=== PATIENT | male | born 1960 | race Caucasian/White ===

== ENCOUNTER → 2018-05-13 09:12 | Outpatient (CLI) | payer BC | END | disposition home or self-care (01) | LOC: D.HCCARDIO 09:12 | PROVIDERS: ATTEND Internal Medicine Cardiovascular Disease | DX: R10.9 Unspecified abdominal pain (principal); Z82.49 Family history of ischemic heart disease and other diseases of the circulatory system ==

== ENCOUNTER 2018-05-27 11:04 | Outpatient (CLI) | payer BC ==
[~2018-05-27] VITALS: Ht 180.3 cm; Wt 86.4 kg
--- NOTE | ~2018-05-27 | HEMODYNAMI ---
PATIENT:AIDE FIERRO MEDICAL RECORD: [id number] : 62 LOCATION:[facility] ADMISSION DATE: 05/27/18 Generatedon:05/27/201813:19 Patient name: AIDE FIERRO Patient #: [id number] SSN: : 1960 Date of study: 05/27/2018 Page: Of Hemodynamic Procedure Report Patient Data Patient Demographics Procedure consent was obtained First Name: IADE Gender: Male Last Name: SRI : 1960 Middle Initial: M Age: 57 year(s) Patient #: [id number] Race: Unknown Additional ID: [id number] Contact details [address]: [address] [place] [address] [place] State: [place] City: [place] Zip code: [address] Admission Admission Data Admission Date: 05/27/2018 Admission Time: 11:04 Procedure Procedure Types Cath Procedure Diagnostic Procedure LHC LHC w/Coronaries Sedation Charges Moderate Sedation up to 15 minutes Procedure Description Procedure Date Procedure Date: 05/27/2018 Procedure Start Time: 13:04 Procedure End Time: 13:19 Procedure Staff Name Function Abdulaziz Day MD Performing Physician Liliya Hudson RT Monitor Ina Villavicencio RT Scrub Elisabeth Tipton RN Nurse Procedure Data Cath Procedure Fluoroscopy Diagnostic fluoroscopy Total fluoroscopy Time: 2.4 time: 2.4 min min Diagnostic fluoroscopy Total fluoroscopy dose: 348 dose: 348 mGy mGy Contrast Material Contrast Material Type Amount (ml) Isovue 300 51 Entry Location Entry Primary Successful Side Size Upsize Upsize Entry Closure Do ccessful Closure Location (Fr) 1 (Fr) 2 (Fr) Remarks Device Remarks Radial Right 6 Fr Mechanical TR band artery Short Compression Estimated blood loss: 10 ml Diagnostic catheters Device Type Used For End Catheter Placement DIAGNOSTIC Yossi 110cm Procedure 5Fr catheter ([id number]) Procedure Complications No complications Procedure Medications Medication Administration Route Dosage Oxygen etCO2 Nasal cannula 2 l/min Lidocaine 2% added to field 20 Heparin Flush Bag added to field 2 bags (1000units/500ml NS) 0.9% NaCl I.V. 100 ml/hr Radial Cocktail I.A. 1 syringe (Verapomil 2mg/Nitro 400mcg/Heparin 1500units) Versed I.V. 2 mg Fentanyl I.V. 50 mcg Versed I.V. 1 mg Hemodynamics Rest Heart Rate: 79 (bpm) Pressure Samples Time Site Value (mmHg) Purpose Heart Use Rate(bpm) 13:06 LV 122/-10,1 Snapshot 84 Gradients Valve Time Site Site Mean SEP/DFP Peak To Heart Use 1 2 (mmHg) (sec/min) Peak Rate (mmHg) (bpm) Aortic 13:07 LV AO 106 Snapshots Pre Cath Intra NCS Post Cath Vital Signs Time Heart Resp SPO2 etCO2 NIBP (mmHg) Rhythm Pain Sedation Rate (ipm) (%) (mmHg) Status Level (bpm) 12:52:28 76 17 95 0 148/87(132) NSR 0 (11) 10(A) , No pain 12:56:27 76 25 96 15.7 145/93(123) NSR 0 (11) 10(A) , No pain 13:00:25 77 13 93 16.5 126/86(111) NSR 0 (11) 10(A) , No pain 13:04:24 76 12 93 14.3 129/84(114) NSR 0 (11) 9(A) , No pain 13:08:22 84 13 94 13.5 112/78(94) NSR 0 (11) 9(A) , No pain 13:12:54 78 14 95 12.7 126/78(94) NSR 0 (11) 9(A) , No pain 13:16:54 76 14 95 9.7 124/77(111) NSR 0 (11) 10(A) , No pain Medications Time Medication Route Dose Verified Delivered Reason Notes Effectiveness by by 13:00:49 Oxygen etCO2 2 l/min Abdulaziz Buffie used for Nasal Shay Tipton RN procedure cannula 13:01:00 Lidocaine 2% added 20ml Abdulaziz Abdulaziz for local to vial Shay Day MD anesthetic field 13:01:07 Heparin Flush added 2 bags Abdulaziz Abdulaziz used for Bag to Shay Day MD procedure (1000units/500ml field NS) 13:01:19 0.9% NaCl I.V. 100 Abdulaziz Buffie Per ml/hr Shay Tipton RN physician 13:01:31 Versed I.V. 2 mg Abdulaziz Buffie for sedation Shay Tipton RN 13:01:38 Fentanyl I.V. 50 mcg Abdulaziz Buffie for sedation Shay Tipton RN 13:06:21 Radial Cocktail I.A. 1 Abdulaziz Abdulaziz for (Verapomil syringe Shay Day MD vasodilation 2mg/Nitro 400mcg/Heparin 1500units) 13:07:12 Versed I.V. 1 mg Abdulaziz Buffie for sedation Shay Tipton RN Procedure Log Time Note 12:37:14 Diagnostic Cath Status : Elective 12:37:35 Liliya Hudson RT(R) sent for patient. Start room use. 12:37:36 Time tracking: Regular hours (M-F 7:00 - 5:00) 12:37:42 Plan of Care:Hemodynamics will remain stable., Cardiac rhythm will remain stable., Comfort level will be maintained., Respiratory function will remain adequate., Patient/ family verbilizes understanding of procedure., Procedure tolerated without complication., Recovers from procedure without complications.. 12:51:28 Patient received from Pre/Post Procedure Room to [facility] 3 Alert and oriented. Tansferred to table in Supine position. 12:51:30 Warm blankets applied, and nicky hugger turned on for patient comfort. 12:51:30 Correct patient and procedure confirmed by team. 12:51:31 Signed procedure consent form obtained from patient. 12:51:33 ECG and BP/O2 sat monitors applied to patient. 12:51:34 Vital chart was started 12:51:35 Baseline sample Acquired. 12:51:38 Rhythm: sinus rhythm 12:51:42 Full Disclosure recording started 12:51:47 H&P Date Dictated: 05/27/2018 Within 30 days and on chart., H&P Addendum completed by physician on day of procedure. (MUST COMPLETE FOR ALL OUTPATIENTS). 12:51:49 Pre-procedure instructions explained to patient. 12:51:50 Pre-op teaching completed and patient verbalized understanding. 12:51:51 Family in waiting room. 12:51:52 Patient NPO since Midnight. 12:51:55 Is the patient allergic to Iodine/contrast media? No. 12:51:56 Was the patient premedicated? No 12:51:56 Is patient on blood thinner?No 12:51:58 Patient diabetic? No. 12:52:00 Previous problem with sedation/anesthesia? No ? 12:52:02 Snore? Yes 12:52:03 Sleep apnea? No 12:52:04 Deviated septum? No 12:52:04 Opens mouth fully? Yes 12:52:05 Sticks out tongue? Yes 12:52:10 Airway obstruction? Yes cpod 12:52:14 Dentures? No ? 12:52:18 Pre procedure: right dorsailis pedis pulse 2+ Normal; easily identifiable; not easily obliterated 12:52:20 Pre procedure: left dorsailis pedis pulse 2+ Normal; easily identifiable; not easily obliterated 12:52:22 Patient pain scale 0/10 ?. 12:52:27 IV patent on arrival in left forearm with 0.9% NaCl at [facility]. 12:52:29 Lab results completed and on chart. 12:52:32 Right Radial & Right Groin area was prepped with chlora-prep and draped in sterile fashion 12:52:33 Alarms reviewed by R. N. 12:52:33 Sharps counted by scrub and verified by R.N. 13:00:00 Physician arrived 13:00:01 --------ALL STOP TIME OUT------ 13:00:02 Final Timeout: patient, procedure, and site verified with staff and physician. All members of the team are in agreement. 13:00:07 Right Radial & Right Groin site verified by team. 13:00:14 Maximum allowable Isovue 300 dose 300ml. Physician notified. (300ml for normal creatinines. For patients with creatinine of 1.7 or higher multiply weight(kg) x 5 divided by creatinine.) 13:00:19 Fire Safety Assessment: A--An alcohol-based skin anteseptic being used preoperatively., C--Open oxygen or nitrous oxide is being used., D--An ESU, laser, or fiber-optic light is being used. 13:00:25 Sedation plan: IV Moderate Sedation Medication:Versed, Fentanyl 13:00:30 Physical assessment completed. ASA score P 2 - A patient with mild systemic disease as per Abdulaziz Day MD. 13:00:35 Use device set Radial Dx or PCI 13:00:37 ACIST Syringe (98695) opened to sterile field. 13:00:38 Medline Cath Pack ([id number]) opened to sterile field. 13:00:38 Bag Decanter (2002S) opened to sterile field. 13:00:38 DIAGNOSTIC WIRE .035 260cm J wire (994490) opened to sterile field. 13:00:39 ACIST Hand Control (67252) opened to sterile field. 13:00:40 ACIST Manifold (29792) opened to sterile field. 13:00:40 Tegaderm 4 x 4 (1626W) opened to sterile field. 13:00:42 MBrace Wrist Support ([id number]) opened to sterile field. 13:00:42 NEEDLE Cook 21G 4cm Radial (L12937) opened to sterile field. 13:00:44 SHEATH 6FR Slender (80-9743) opened to sterile field. 13:00:49 Oxygen 2 l/min etCO2 Nasal cannula was administered by Elisabeth Tipton RN; used for procedure; 13:01:00 Lidocaine 2% 20ml vial added to field was administered by Abdulaziz Day MD; for local anesthetic; 13:01:07 Heparin Flush Bag (1000units/500ml NS) 2 bags added to field was administered by Abdulaziz Day MD; used for procedure; 13:01:19 0.9% NaCl 100 ml/hr I.V. was administered by Elisabeth Tipton RN; Per physician; 13:01:31 Versed 2 mg I.V. was administered by Elisabeth Tipton RN; for sedation; 13:01:38 Fentanyl 50 mcg I.V. was administered by Elisabeth Tipton RN; for sedation; 13:04:26 Procedure started. 13:04:36 Local anesthetic to right radial artery with Lidocaine 2% by Abdulaziz Day MD.INITIAL ACCESS ONLY 13:04:46 A 6 Fr Short sheath was inserted into the Right Radial artery 13:04:58 A DIAGNOSTIC Yossi 110cm 5Fr catheter (054421) was advanced over the wire and used for Procedure. 13:05:39 LV angiography performed. 13:05:52 Baseline sample Acquired. 13:06:21 Radial Cocktail (Verapomil 2mg/Nitro 400mcg/Heparin 1500units) 1 syringe I.A. was administered by Abdulaziz Day MD; for vasodilation; 13:06:53 EF : 55 % 13:07:12 Versed 1 mg I.V. was administered by Elisabeth Tipton RN; for sedation; 13:08:30 RCA angiography performed. 13:08:51 LCA angiography performed. 13:15:56 Catheter removed. 13:16:39 Sheath removed intact; hemostasis achieved with Mechanical Compression to the Right Radial artery. 13:16:42 Procedure ended.(Physican Out) 13:17:03 Fluoroscopy time 02.40 minutes. 13:17:10 Flurop Dose total: 348 13:17:10 Fluoroscopy dose: 348 mGy 13:17:17 Contrast amount:Isovue 300 51ml. 13:17:26 TR band inflated with 10cc of air. 13:17:31 Insertion/operative site no bleeding no hematoma. 13:17:36 Post Procedure Pulses reassessed and unchanged 13:17:39 Post-procedure physical assessment completed. ASA score P 2 - A patient with mild systemic disease as per Abdulaziz Day MD. 13:17:45 Post procedure rhythm: unchanged. 13:17:48 Estimated blood loss: 10 ml 13:17:52 Post procedure instruction explained to patient.Patient verbalizes understanding. 13:18:08 Procedure type changed to Cath procedure, Diagnostic procedure, LHC, LHC w/Coronaries, Sedation Charges, Moderate Sedation up to 15 minutes 13:18:08 Procedure and supply charges have been captured, reviewed, submitted and are correct. 13:18:19 TR BAND Standard ([id number]) opened to sterile field. 13:18:46 Procedure Complication : No complications 13:18:49 Vital chart was stopped 13:18:50 See physician's report for complete and final results. 13:18:52 Report given to Pre/Post Procedure Room. 13:18:56 Patient transfered to Pre/Post Procedure Room with Stretcher. 13:18:59 Procedure ended. 13:18:59 Full Disclosure recording stopped 13:19:03 End room use (Document Last) Device Usage Item Name Manufacture Quantity Catalog Hospital Part Current Minimal Lot# / Number Charge Number Stock Stock Serial# Code ACIST Acist 1 79619 [id number] 242787 976424 20 CultureMap (17538) MyDream [employer] Inc Medline Medline 1 [id number] 109635 50885 882623 5 Cath Pack ([id number]) Bag Microtek 1 431862 86181 066022 5 Decanter Medical Inc. (2001S) DIAGNOSTIC [facility] [place] 1 328611 570657 866509 579403 30 WIRE .035 260cm J wire (390775) ACIST Hand Acist 1 52107 917708 088628 880323 5 Control Medical (23467) Systems Inc ACIST Acist 1 62920 508955 145645 745014 5 Manifold Medical (44293) Systems Inc Tegaderm 4 3M 1 1626W 384706 244853 171237 5 x 4 (1626W) MBrace Advanced 1 140-0250-00 528976 51212 346737 5 Wrist Vascular Support Dynamics ([id number]) NEEDLE Cook Cook Medical 1 B15417 397584 056233 304811 5 21G 4cm Radial (Z26797) SHEATH 6FR Terumo 1 [id number] 659659 887975 489324 5 Slender (80-1060) DIAGNOSTIC Terumo 1 40-3860 906329 789132 459584 5 Yossi 110cm 5Fr catheter (015471) TR BAND Terumo 1 [id number] 747420 264183 604008 40 Standard ([id number]) Signature Audit [place] Stage Time Signature Unsigned Intra-Procedure 05/27/2018 Liliya Hudson 1:19:42 PM RT(R) Signatures Monitor : Liliya Hudson Signature : RT Date : Time : [facility] [address] [facility] [place] [address]
[2018-05-27] MEDS ORDERED: CELEXA20 MG PO (11:14)
[2018-05-27] MEDS ORDERED: OMEPRAZOLE20 M1 PO (11:15)
[2018-05-27] MEDS ORDERED: NAPROXEN SODIU220 M1 PO (11:15)
[2018-05-27] MEDS ORDERED: VASOTEC20 MG PO (11:15)
[2018-05-27] MEDS ORDERED: CARTIA XT120 MG PO (11:15)
[2018-05-27] MEDS ORDERED: BAYER CHEWABLE81 MG PO (11:15)
[2018-05-27] MEDS ORDERED: CLARITIN 10 MG10 MG PO (11:16)
[2018-05-27 11:33] VITALS: BP 138/81; Ht 180.3 cm; Wt 86.4 kg
[2018-05-27 11:39] LABS: BASOPHILS 0.3 % (0-2); EOSINOPHILS 1.7 % (0-7); HEMATOCRIT 43.1 % (42.0-54.0); HEMOGLOBIN 15.6 g/dL (13.5-17.5); IMMATURE GRANULOCYTES 0.3 % (0-5); LYMPHOCYTES 28.1 % (15-50); MCH 32.7 pg (26.0-34.0); MCHC 36.2 g/dL (31.0-37.0); MCV 90.4 fL (80.0-100.0); MEAN PLATELET VOLUME 10.4 fL (7.4-10.4); MONOCYTES 6.8 % (2-11); NEUTROPHILS 62.8 % (40-80); PLATELET COUNT 202 10x3/uL (130-400); RBC 4.77 10x6/uL (4.20-6.10); WBC 9.2 10x3/uL (4.8-10.8)
[2018-05-27 11:53] LABS: CALC OSMOLALITY 275 mosm/kg (275-300); CALCIUM 8.9 mg/dL (8.5-10.1); CHLORIDE - SERUM 100 mmol/L (98-107); CREATININE - SERUM 0.8 mg/dL (0.6-1.3); GLUCOSE 113 mg/dL (74-106); POTASSIUM - SERUM 4.2 mmol/L (3.5-5.1); SODIUM 137 mmol/L (136-145); UREA NITROGEN 14 mg/dL (7-18); eGFR NON AFRICAN AMERICAN > 90 mL/min (90-120)
--- NOTE | 2018-05-27 13:45 | NUR ---
2L NC, NO RESP DISTRESS. RIGHT WRIST TR BAND CDI, NO BLEEDING OR HEMATOMA NOTED. NO C/O PAIN OR NAUSEA. VSS. FAMILY AT BEDSIDE, CALL LIGHT WITHIN REACH.
--- NOTE | 2018-05-27 14:15 | NUR ---
RESTING QUIETLY WITH EYES CLOSED. RIGHT WRIST TR BAND CDI, NO BLEEDING OR HEMATOMA NOTED. DENIES ANY NEEDS. VSS. WILL CONTINUE TO MONITOR.
--- NOTE | 2018-05-27 14:30 | NUR ---
3CC OF AIR REMOVED FROM TR BAND WITH NO BLEEDING OR HEMATOMA NOTED. SIPPING ON DRINK AND EATING SANDWICH WITH NO C/O NAUSEA. VSS. WILL CONTINUE TO MONITOR.
--- NOTE | 2018-05-27 14:50 | NUR ---
3CC OF AIR REMOVED FROM TR BAND WITH NO BLEEDING OR HEMATOMA NOTED. VSS. WILL CONTINUE TO MONITOR CLOSELY.
--- NOTE | 2018-05-27 15:10 | NUR ---
2CC OF AIR REMOVED FROM TR BAND WITH NO BLEEDING NOTED. LEFT PIV D/C'D WITH CATHETER INTACT, BAND AID TO SITE. UP TO BEDSIDE TO GET DRESSED. AMBULATED TO RESTROOM.
--- NOTE | 2018-05-27 15:22 | NUR ---
REMAINING AIR REMOVED FROM TR BAND WITH NO BLEEDING NOTED. DRESSING PLACED TO SITE. DISCHARGE INSTRUCTIONS GIVEN TO PT AND , VERBALIZED UNDERSTANDING. PT REQUESTS TO SPEAK WITH DR LANDRY AGAIN.
--- NOTE | 2018-05-27 15:43 | NUR ---
DR. LANDRY AT BEDSIDE SPEAKING WITH PT AND FAMILY.
--- NOTE | 2018-05-27 15:53 | NUR ---
TAKEN OUT VIA WHEELCHAIR BY CATH DIRECTOR UTILIZATION MANAGEMENT. LEFT FACILITY WITH FAMILY AND ALL PERSONAL BELONGINGS.
== END 2018-05-27 15:53 | disposition home or self-care (01) ==
LOC: D.CATH 11:04
PROVIDERS: ATTEND Internal Medicine Cardiovascular Disease
DX: I25.119 Atherosclerotic heart disease of native coronary artery with unspecified angina pectoris (principal); R94.39 Abnormal result of other cardiovascular function study; I10 Essential (primary) hypertension; Z01.812 Encounter for preprocedural laboratory examination

== ENCOUNTER 2018-05-30 10:11 | Inpatient (IN) | payer BC ==
[~2018-05-30] VITALS: Ht 180.3 cm; Wt 91.4 kg
[~2018-05-30 10:11] MED LIST: BAYER CHEWABLE81 MG PO; CARTIA XT120 MG PO; CELEXA20 MG PO; CLARITIN 10 MG10 MG PO; NAPROXEN SODIU220 M1 PO; OMEPRAZOLE20 M1 PO; VASOTEC20 MG PO
[2018-05-30 12:22] LABS: BASOPHILS 0.4 % (0-2); HEMATOCRIT 42.1 % (42.0-54.0); HEMOGLOBIN 15.2 g/dL (13.5-17.5); IMMATURE GRANULOCYTES 0.4 % (0-5); LYMPHOCYTES 31.5 % (15-50); MCH 32.8 pg (26.0-34.0); MCHC 36.1 g/dL (31.0-37.0); MCV 90.7 fL (80.0-100.0); MEAN PLATELET VOLUME 10.5 fL (7.4-10.4); MONOCYTES 5.8 % (2-11); NEUTROPHILS 59.9 % (40-80); PLATELET COUNT 191 10x3/uL (130-400); RBC 4.64 10x6/uL (4.20-6.10); WBC 8.1 10x3/uL (4.8-10.8)
[2018-05-30 12:31] LABS: APPEARANCE CLEAR (CLEAR); BILIRUBIN NEGATIVE (NEGATIVE); COLOR YELLOW (YELLOW); GLUCOSE NEGATIVE (NEGATIVE); KETONE NEGATIVE (NEGATIVE); NITRITE NEGATIVE (NEGATIVE); PROTEIN NEGATIVE (NEGATIVE); UROBILINOGEN NORMAL (NORMAL)
[2018-05-30 12:32] LABS: APTT 34.2 SECONDS (22.8-39.4); INR 1.04 (0.85-1.17); PROTIME 13.1 SECONDS (11.6-15.0)
[2018-05-30 12:45] LABS: ALBUMIN 3.9 g/dL (3.4-5.0); ALKALINE PHOSPHATASE 61 U/L (46-116); ALT (SGPT) 44 U/L (10-68); BILIRUBIN - TOTAL 0.35 mg/dL (0.2-1.3); CALC OSMOLALITY 277 mosm/kg (275-300); CALCIUM 8.8 mg/dL (8.5-10.1); CARBON DIOXIDE 30.4 mmol/L (21.0-32.0); CHLORIDE - SERUM 102 mmol/L (98-107); CHOLESTEROL, TOTAL 234 mg/dL (0-200); CREATININE - SERUM 0.8 mg/dL (0.6-1.3); GLUCOSE 105 mg/dL (74-106); PHOSPHOROUS 4.1 mg/dL (2.5-4.9); POTASSIUM - SERUM 4.2 mmol/L (3.5-5.1); PROTEIN - SERUM 7.2 g/dL (6.4-8.2); SODIUM 139 mmol/L (136-145); THYROID STIMULATING HORMONE 2.12 uIU/mL (0.36-3.74); UREA NITROGEN 13 mg/dL (7-18); URIC ACID 5.5 mg/dL (2.6-7.2); eGFR NON AFRICAN AMERICAN > 90 mL/min (90-120)
[2018-06-02] VITALS (41 sets, daily range): BP systolic 83–167; BP diastolic 44–92; BMI 26.4; BMI 27.6
--- NOTE | 2018-06-02 13:34 | NUR ---
PT ARRIVED TO ROOM VIA BED FROM O.R. PLACED ON BEDSIDE MONITORING. HYPOTENSIVE. DR TEMPLE ADJUSTING ROSEMARIE. PT UNRESPONSIVE. PUPILS AT 1, BRISK RESPONSE. EDEMA OF EYES NOTED. PT INTUBATED WITH 8.5F, 26CM AT THE LIP. R RADIAL ART LINE. 1+ EDEMA OF HANDS. MIDSTERNAL INCISION, DRESSING C,D,I. SUBSTERNAL DRESSING WITH CHEST TUBE X2 AND LEFT BATOOL DRAIN. TPM WIRE COILED. RIGHT LEG HARVEST. WRAPPED. PALPABLE PULSES. YOUNG CATHETER. 36.7 TEMP. LARGE MOLE/GROWTH LEFT LOWER ABDOMEN. RIGHT JUGULAR CENTRAL LINE.
--- NOTE | 2018-06-02 14:30 | NUR ---
FAMILY BROUGHT IN TO SEE PATIENT. PT REMAINS UNRESPONSIVE AT THIS TIME.
--- NOTE | 2018-06-02 15:22 | NUR ---
PT STARTING TO WAKE. OPENS EYES WHEN ASKED.
--- NOTE | 2018-06-02 15:56 | NUR ---
PT MORE AWAKE. OPENS EYES. FOLLOWS COMMANDS. VENT SETTING CHANGED TO CPAP
--- NOTE | 2018-06-02 16:29 | NUR ---
DR DEL RIO BY TO CHECK ON PT. AMIODARONE CHANGED TO 5ML/HR.
--- NOTE | 2018-06-02 16:55 | NUR ---
POTASSIUM AND SODIUM BICARB GIVEN PER PROTOCOL.
--- NOTE | 2018-06-02 17:02 | NUR ---
PT EXTUBATED AND PLACED ON 4L NC.
--- NOTE | 2018-06-02 19:00 | NUR ---
REPORT RECEIVED, SHIFT ASSESSMENT COMPLETED PER FLOW SHEET. AROUSES TO VOICE. PPP. X2 SUBSTERNAL CT Y'D INTO ONE AND X1 SUBSTERNAL CT TO [address] TO BATOOL DRAIN COMPRESSED WITH BLOODY OUTPUT. ARTERIAL AND CVP LINE LEVELED AND ZEROED WITH GOOD WAVEFORM. YOUNG CATHETER TO GRAVITY SECURED. ICE CHIPS PROVIDED, TOLERATING WELL, NO DYSPHAGIA. FOLLOWING COMMANDS. SEE FLOW SHEET FOR COMPLETE ASSESSMENT. WILL CONTINUE TO MONITOR.
--- NOTE | 2018-06-02 19:38 | NUR ---
BP STABLE AND WITHIN ORDERED PARAMATERS, NEOSYNEPHRINE DRIP TURNED DOWN TO 0.2 MCG/KG/MIN, WILL CONTINUE TO MONITOR.
--- NOTE | 2018-06-02 20:07 | NUR ---
FAMILY AT BEDSIDE, UPDATE GIVEN, QUESTIONS ANSWERED.
--- NOTE | 2018-06-02 20:27 | NUR ---
ICE CHIPS PROVIDED, TOLERATING WELL. FAMILY AT BEDSIDE.
--- NOTE | 2018-06-02 21:00 | NUR ---
BACTROBAN NOT AVAILABLE, CALLED PHARMACY, THEY STATED THEY WILL SEND IT. WILL WAIT FOR AVAILABILITY TO ADMINISTER.
--- NOTE | 2018-06-02 22:00 | NUR ---
COUGH/DEEP BREATHING, IS ENCOURAGED. COUGH WEAK, PULLING 750-100 ON IS.
--- NOTE | 2018-06-02 22:07 | NUR ---
POTASSIUM LEVEL NOT AVAILABLE, CALLED LABORATORY, TO OBTAIN MORE INFORMATION, THEY STATED THEY WILL CHECK ON IT.
--- NOTE | 2018-06-02 22:36 | NUR ---
POTASSIUM LEVEL NOW AVAILABLE, K+ 4.5, NO TREATMENT PER PROTOCOL. WILL CONTINUE TO MONITOR.
--- NOTE | 2018-06-02 23:01 | NUR ---
REASSESSMENT COMPLETED PER FLOW SHEET, SEE FOR DETAILS. NO ACUTE CHANGES NOTED. WATER PROVIDED, TOLERATING CLEAR LIQUIDS WELL. WILL CONTINUE TO MONITOR.
[2018-06-03] VITALS (26 sets, daily range): BP systolic 108–139; BP diastolic 58–88; Ht 180.3 cm; Wt 91.4 kg
--- NOTE | 2018-06-03 01:08 | NUR ---
C/O INCISIONAL PAIN, PRN MORPHINE GIVEN. WATER PROVIDED PER HIS REQUEST. DENIES OTHER NEEDS. WILL CONTINUE TO MONITOR.
--- NOTE | 2018-06-03 03:00 | NUR ---
REASSESSMENT COMPLETED PER FLOW SHEET, SEE FOR DETAILS. C/O INCISIONAL PAIN, PRN MORPHINE GIVEN. WILL CONTINUE TO MONITOR.
--- NOTE | 2018-06-03 05:00 | NUR ---
COMPLETE BED BATH GIVEN. YOUNG CARE PROVIDED. SUBSTERNAL DRESSING CHANGED PER DOCTOR'S ORDERS. TOLERATED ALL WELL. WILL CONTINUE TO MONITOR.
--- NOTE | 2018-06-03 06:30 | NUR ---
ASSISSTED OOB TO CHAIR X2 PERSON ASSISST. TOLERATED WELL. CALL LIGHT WITHIN REACH. DENIES NEEDS. WILL CONTINUE TO MONITOR.
[2018-06-03 06:31] LABS: HEMATOCRIT 35.8 % (42.0-54.0); HEMOGLOBIN 12.8 g/dL (13.5-17.5); MCH 33.2 pg (26.0-34.0); MCHC 35.8 g/dL (31.0-37.0); MCV 92.7 fL (80.0-100.0); MEAN PLATELET VOLUME 10.4 fL (7.4-10.4); RBC 3.86 10x6/uL (4.20-6.10); RDW 13.7 % (11.5-14.5); WBC 13.2 10x3/uL (4.8-10.8)
[2018-06-03 06:57] LABS: ALBUMIN 2.9 g/dL (3.4-5.0); ALKALINE PHOSPHATASE 35 U/L (46-116); ALT (SGPT) 41 U/L (10-68); BILIRUBIN - TOTAL 0.39 mg/dL (0.2-1.3); CALC OSMOLALITY 282 mosm/kg (275-300); CALCIUM 7.7 mg/dL (8.5-10.1); CARBON DIOXIDE 27.8 mmol/L (21.0-32.0); CHLORIDE - SERUM 106 mmol/L (98-107); CREATININE - SERUM 0.6 mg/dL (0.6-1.3); GLUCOSE 144 mg/dL (74-106); POTASSIUM - SERUM 4.2 mmol/L (3.5-5.1); PROTEIN - SERUM 5.4 g/dL (6.4-8.2); SODIUM 141 mmol/L (136-145); UREA NITROGEN 10 mg/dL (7-18); eGFR NON AFRICAN AMERICAN > 90 mL/min (90-120)
--- NOTE | 2018-06-03 07:55 | NUR ---
PT UP IN CHAIR. DR DEL RIO HERE ON ROUNDS. CL TRAY PROVIDED AND PT TAKING IN CL WITH OUT DIFFICULTY.
--- NOTE | 2018-06-03 10:45 | OP ---
PATIENT NAME: AIDE FIERRO MEDICAL RECORD: [id number] :62 LOCATION:D.CVI D.CV08 ADMISSION DATE:06/02/18 SURGEON: JAVIER DEL RIO MD DATE OF OPERATION: 06/02/2018 PROCEDURES PERFORMED: 1. Coronary artery bypass graft times 4 (left internal mammary artery to LAD, reverse saphenous vein graft from aorta to first diagonal, aorta to ramus intermedius, aorta to the posterior descending artery). 2. Endoscopic saphenous vein harvest. PREOPERATIVE DIAGNOSIS: Coronary artery disease with unstable angina. POSTOPERATIVE DIAGNOSIS: Coronary artery disease with unstable angina. ANESTHESIA: General endotracheal anesthesia. ESTIMATED BLOOD LOSS: Total cardiopulmonary bypass with Cell Saver retransfusion. COMPLICATIONS: None. SPECIMENS: None. CONDITION: Stable. DISPOSITION: CV ICU. OPERATIVE FINDINGS: 1. Transesophageal echocardiography revealed left ventricular hypertrophy, good contractility, and trace mitral regurgitation that resolved after coronary artery bypass graft. 2. Good quality greater saphenous vein harvested endoscopically with 2 bridging incisions in the right lower leg. 3. Left internal mammary artery densely applied to the upper portion of the inner sternum. Good quality vessel, the LAD was a 1.5 mm vessel with plaque throughout the entire vessel. Anastomosis at the best available spot and a 1.5 mm probe passed proximally and distally. Good Doppler signal after anastomosis and after reversal of heparin. 4. First diagonal 1.5 mm vessel with moderate plaque. 5. Ramus intermedius 2.5 mm intramyocardial vessel with severe disease. 6. Posterior descending artery 1.5 mm vessel with severe disease. The posterolateral and ongoing right were not available for bypass. 7. Severe bilateral hyperexpanded lungs. OPERATIVE INDICATIONS: Coronary artery disease and unstable angina. OPERATIVE SUMMARY OF PROCEDURE: The patient was brought to the operating suite. General anesthesia was obtained. The patient prepped and draped. Greater saphenous vein harvested endoscopically from the right lower extremity. Side branches were divided by electrocautery. The vessels were ligated, proximal and distal, and removed. Side branches were clipped. The leg was irrigated and closed in 2 layers. Side branches were tied and thin spots were oversewn. A median sternotomy incision was made. Subcutaneous tissues were divided with OPERATIVE REPORT [id number] AIDE FIERRO electrocautery. Sternum was divided with a saw. Left hemisternum was elevated. Left pleural cavity was entered. Left internal mammary artery and vein was taken down as a pedicle graft. Sternal retractor was placed. Pericardium was opened. Heparin was given. Aorta was cannulated. Dual-stage venous cannula was inserted. Internal mammary clipped distally and made ready for anastomosis. Retrograde cardioplegic cannula was inserted. The patient placed in the cardiopulmonary bypass. Sites for distal anastomoses were selected. Antegrade cardioplegic cannula was inserted. The patient was cooled. Crossclamp was placed. Cardioplegia given antegrade and retrograde and antegrade cardioplegia including down the completed vein grafts was repeated at 15 to 20 minute intervals during the crossclamp time. Distal anastomoses were performed in standard technique. Proximal anastomosis with single cross-clamp technique. The aortic root de-aired, cross clamp removed. Flow restored. Proximal anastomosis tied down. Vein grafts de-aired. Proximal and distal anastomotic sites inspected for bleeding. The patient fully rewarmed, weaned from cardiopulmonary bypass and was stable. The patient was decannulated. The cannula sites were oversewn. Protamine was given. Thorough irrigation was undertaken. Grafts lay appropriately. Hemostasis was ensured. The right and left chest were evacuated and irrigated. Drains were placed. Atrial and ventricular pacing wires were placed. Pericardial fat was loosely reapproximated in the midline. The internal mammary harvest site was inspected for bleeding. Sternum was closed with wires. Fascia closed. Subcutaneous tissue was closed. Skin was closed. Dermabond was placed. The needle and sponge counts were reported correct and the patient was taken to ICU in stable condition. TRANSINT:[id number] Voice Confirmation ID: [id number] DOCUMENT ID: [id number] JAVIER DEL RIO MD at 1045 CC: SHIRLEY LANDRY M.D. and TONIO WU [phone] DICTATION DATE: 06/02/18 165 HYDRAULIC PLUMBER: 06/02/181947 ADM IN [facility] [address] [id number]
--- NOTE | 2018-06-03 10:45 | NUR ---
ASSISTED PT BACK TO BED. YOUNG DCD ORDERED. 2MG MS GIVEN ORDERED FOR CT REMOVAL.
--- NOTE | 2018-06-03 11:38 | NUR ---
R WRIST ART LINE DCD. DR DEL RIO PULLED 3 CT'S. PT [place] WELL.
--- NOTE | 2018-06-03 12:11 | NUR ---
ASSISTED UP TO CHAIR FOR LUNCH.
--- NOTE | 2018-06-03 13:51 | NUR ---
PT AMBULATED WITH PT AND C/O DIZZINESS. BACK TO CHAIR. VSS. FAMILY AT .
--- NOTE | 2018-06-03 14:24 | NUR ---
PT UP IN CHAIR, VSS. INSTRUCTED I.S. PT REFUSED. STATES "NOT NOW. " STATES AM HURTING. PO PAIN MED GIVEN.
--- NOTE | 2018-06-03 15:35 | NUR ---
DR DEL RIO HERE. PT RESTING QUIETLY IN CHAIR. VSS, AFEBRILE.
--- NOTE | 2018-06-03 18:27 | NUR ---
PT C/O MILD NAUSEA. REGLAN GIVEN.
--- NOTE | 2018-06-03 19:04 | NUR ---
EDUCATED PATIENT ON THE USE OF INCENTIVE AND ENCOURAGED HIM TO USE IT. PATIENT WAS RELUCTANT BUT DID 5 BREATHS RANGING FROM 750-1500. PATIENT HAD GOOD NON- PRODUCTIVE COUGH. PATIENT EDUCATED ON NEED TO DO DEEP BREATHING AND COUGHING.
--- NOTE | 2018-06-03 20:55 | NUR ---
PATIENT VOIDED 600ML OF JANNET URINE. DENIES ANY NEEDS. CALL LIGHT WITHIN REACH, BED IN LOW POSITION.
[2018-06-04] VITALS (22 sets, daily range): BP systolic 92–130; BP diastolic 52–79
--- NOTE | 2018-06-04 02:12 | NUR ---
PATIENT C/O OF BEING HOT AND HAVING INCISIONAL PAIN. REPOSITIONED PATIENT IN BED. PAIN MED GIVEN. PATIENT HAD 750 ON INSENTIVE SPIROMETRY. CALL LIGHT WITHIN REACH, BED IN LOW POSITION.
[2018-06-04 07:02] LABS: HEMATOCRIT 34.5 % (42.0-54.0); HEMOGLOBIN 11.8 g/dL (13.5-17.5); MCH 31.8 pg (26.0-34.0); MCHC 34.2 g/dL (31.0-37.0); MEAN PLATELET VOLUME 10.6 fL (7.4-10.4); RBC 3.71 10x6/uL (4.20-6.10); RDW 13.5 % (11.5-14.5); WBC 15.3 10x3/uL (4.8-10.8)
[2018-06-04 07:32] LABS: ALBUMIN 2.9 g/dL (3.4-5.0); ALKALINE PHOSPHATASE 38 U/L (46-116); ALT (SGPT) 44 U/L (10-68); BILIRUBIN - TOTAL 0.55 mg/dL (0.2-1.3); CALC OSMOLALITY 268 mosm/kg (275-300); CALCIUM 8.1 mg/dL (8.5-10.1); CARBON DIOXIDE 31.8 mmol/L (21.0-32.0); CHLORIDE - SERUM 98 mmol/L (98-107); CREATININE - SERUM 0.7 mg/dL (0.6-1.3); GLUCOSE 138 mg/dL (74-106); POTASSIUM - SERUM 4.2 mmol/L (3.5-5.1); SODIUM 134 mmol/L (136-145); UREA NITROGEN 10 mg/dL (7-18); eGFR NON AFRICAN AMERICAN > 90 mL/min (90-120)
--- NOTE | 2018-06-04 10:06 | NUR ---
PT BRIANA CORTEZ WITH PT. DR DEL RIO HERE. TORADOL GIVEN FOR PAIN. INSTRUCTED USE AND IMPORTANCE OF I.S. PT HAVING DIFFICULTY WITH UNDERSTANDING IMPORTANCE. INSTRUCTED SPLINTING WITH HEART PILLOW. PT PULLS OVER 1000 I.S. INCONSISTENTLY.
--- NOTE | 2018-06-04 10:46 | NUR ---
INSTRUCTED I.S. PT TOLERATED SOME BETTER AFTER TORADOL. PULLS 1200 WITH BETTER EFFORT.
--- NOTE | 2018-06-04 16:11 | MORECARE ---
CASE MANAGEMENT DISCHARGE SUMMARY PATIENT: AIDE FIERRO UNIT: [id number] ADM DATE: 06/02/18 AGE: 57 : 62 SEX: M [facility] AUTHOR: ASHLEE NICOLE PHYSICIAN: REFERRING PHYSICIAN: JAVIER DEL RIO MD DATE OF SERVICE: 06/04/18 Discharge Plan Patient Name: AIDE FIERRO [facility] [facility] 1960 Planned Disposition: Home Anticipated Discharge Date: Discharge Date: Expected LOS: Initial Reviewer: [email or web address] Initial Review Date: 06/04/2018 Generated: 06/04/18 5:11 pm DCPIA - Discharge Planning Initial Assessment Updated by [email or web address]: Stephanie Rai on 06/04/18 4:10 pm * Is the patient Alert and Oriented? Yes * How many steps to enter\exit or inside your home? * PCP WU * Pharmacy [facility] * Preadmission Environment Home with Family * ADLs Independent * Equipment Cane * List name and contact numbers for known caregivers / representatives who currently or will assist patient after discharge: BAO OCASIO [facility] - [phone] * Verbal permission to speak to the caregivers and representatives has been obtained from the patient. Yes * Community resources currently utilized None * Additional services required to return to the preadmission environment? No * Can the patient safely return to the preadmission environment? Yes * Has this patient been hospitalized within the prior 30 days at any hospital? No Patient Name: AIDE FIERRO Page [id number] at 1611 All edits/amendments must be made on the electronic document DICTATION DATE: 06/04/18 161 UI UX WEB DEVELOPER: MARCIN 06/04/18 1610 RPT#: [id number] DC DATE: STATUS: ADM IN [facility] [address] [place] [address] END OF REPORT
--- NOTE | 2018-06-04 16:20 | MORECARE ---
CASE MANAGEMENT DISCHARGE SUMMARY PATIENT: AIDE FIERRO UNIT: [id number] ADM DATE: 06/02/18 AGE: 57 : 62 SEX: M ROOM/BED: D[facility] AUTHOR: BONNIE,DOC PHYSICIAN: REFERRING PHYSICIAN: JAVIER DEL RIO MD DATE OF SERVICE: 06/04/18 Discharge Plan Patient Name: AIDE FIERRO Facility: [facility]:[place] : 1960 Planned Disposition: Home Anticipated Discharge Date: Discharge Date: Expected LOS: Initial Reviewer: [email or web address] Initial Review Date: 06/04/2018 Generated: 06/04/18 5:20 pm Comments DCP- Discharge Planning Updated by [email or web address]: Stephanie Rai on 06/04/18 3:[address] Patient Name: AIDE FIERRO Admission Status: Elective Accout number: [id number] Admission Date: 06-02-2018 : 1960 Admission Diagnosis: Attending: JAVIER DEL RIO Current LOS: 2 Anticipated DC Date: Planned Disposition: Home Primary Insurance: [employer] [facility] Discharge Planning Comments: CM met with patient at bedside. Patient states he lives at home with his significant other (Bao). He plans on returning to their home upon discharge. He states he feels safe at his home. He states he will have family drive him home upon discharge. He denies any discharge needs at this time. Patient may require walk test if 02 is required upon discharge. CM will continue to follow and assist as needed with discharge planning / needs. Information Director: Stephanie Rai DCPIA - Discharge Planning Initial Assessment Updated by [email or web address]: Stephanie Rai on 06/04/18 4:10 pm * Is the patient Alert and Oriented? Yes * How many steps to enter\exit or inside your home? * PCP WU * Pharmacy [facility] * Preadmission Environment Home with Family * ADLs Independent * Equipment Cane * List name and contact numbers for known caregivers / representatives who currently or will assist patient after discharge: BAO OCASIO - [facility] - [phone] * Verbal permission to speak to the caregivers and representatives has been obtained from the patient. Yes * Community resources currently utilized None * Additional services required to return to the preadmission environment? No * Can the patient safely return to the preadmission environment? Yes * Has this patient been hospitalized within the prior 30 days at any hospital? No Last DP export: 06/04/18 3:11 p Patient Name: AIDE FIERRO Page [id number] at 1620 All edits/amendments must be made on the electronic document DICTATION DATE: 06/04/181619 ENGINE SETTER: MARCIN 06/04/181619 RPT#: [id number] DC DATE: STATUS: ADM IN [facility] [address] [place] [address] END OF REPORT
--- NOTE | 2018-06-04 18:20 | NUR ---
SPOKE TO DR JOHNSON RE: PT HAVING SEIZURE LIKE ACTIVITY. DR JOHNSON CAME TO BS. CT HEAD AND KEPPRA ORDERED. UPDATE GIVEN TO FAMILY.
--- NOTE | 2018-06-04 18:24 | NUR ---
PT SITTING UP IN CHAIR. PULLS 4000 ON I.S. WITH GOOD EFFORT. ASSISTED PT TO AMB TO BATHROOM TO VOID.
--- NOTE | 2018-06-04 19:00 | NUR ---
REPORT RECEIVED CARE ASSUMED INITIAL SHIFT ASSESSMENT COMPLETED SEE FLOWSHEET. PT MONITORED PER STANDARD CVICU PROTOCOL WITH ALL ALARMS SET, VERIFIED AND AUDIBLE AT NURSES STATION. PT SITTING UP IN CHAIR WATCHING TELEVISION. DENIES NEEDS AT THIS TIME. ABLE TO USE CALL LIGHT SYSTEM TO REQUEST ASSISTANCE.
--- NOTE | 2018-06-04 21:05 | NUR ---
PIEDAD GIVEN DOCUMENTED ON MAR NO SWALLOWING DIFFICULTY. PT TEACHING DONE REGARDING MEDS USE AND SE. PT VERBALIZED COMPREHENSION.
--- NOTE | 2018-06-04 23:00 | NUR ---
SHIFT REASSESSMENT COMPLETED SEE FLOWSHEET.
[2018-06-05] VITALS (23 sets, daily range): BP systolic 107–149; BP diastolic 62–90
--- NOTE | 2018-06-05 01:00 | NUR ---
PT SLEEPING WELL
--- NOTE | 2018-06-05 03:00 | NUR ---
SHIFT REASSESSMENT COMPLETED SEE FLOWSHEET. NO SIGNIFICANT CHANGES. PT SLEEPING WELL TONIGHT
--- NOTE | 2018-06-05 04:00 | NUR ---
RADIOLOGY HERE FOR ORDERED CXR.
[2018-06-05 04:54] LABS: HEMATOCRIT 31.9 % (42.0-54.0); HEMOGLOBIN 10.8 g/dL (13.5-17.5); MCH 31.6 pg (26.0-34.0); MCHC 33.9 g/dL (31.0-37.0); MCV 93.3 fL (80.0-100.0); MEAN PLATELET VOLUME 10.7 fL (7.4-10.4); RBC 3.42 10x6/uL (4.20-6.10); RDW 13.4 % (11.5-14.5)
[2018-06-05 04:56] LABS: WBC 10.4 10x3/uL (4.8-10.8)
[2018-06-05 05:26] LABS: ALBUMIN 2.6 g/dL (3.4-5.0); ALKALINE PHOSPHATASE 44 U/L (46-116); ALT (SGPT) 54 U/L (10-68); BILIRUBIN - TOTAL 0.49 mg/dL (0.2-1.3); CALC OSMOLALITY 281 mosm/kg (275-300); CALCIUM 8.2 mg/dL (8.5-10.1); CARBON DIOXIDE 29.6 mmol/L (21.0-32.0); CHLORIDE - SERUM 103 mmol/L (98-107); CREATININE - SERUM 0.7 mg/dL (0.6-1.3); GLUCOSE 128 mg/dL (74-106); POTASSIUM - SERUM 3.9 mmol/L (3.5-5.1); PROTEIN - SERUM 6.2 g/dL (6.4-8.2); SODIUM 141 mmol/L (136-145); UREA NITROGEN 10 mg/dL (7-18); eGFR NON AFRICAN AMERICAN > 90 mL/min (90-120)
--- NOTE | 2018-06-05 07:00 | NUR ---
UP IN CHAIR WITH ASSIST. VOICE C/O HURTING. PERCOCET GIVEN PER PHILL PERKINS.,
--- NOTE | 2018-06-05 10:00 | NUR ---
UP IN CHAIR. NO CO AT TIME.
--- NOTE | 2018-06-05 10:10 | NUR ---
Nutrition Follow Up: Chart reviewed. Pt is POD 3 CABG. Diet: Regular PO Intake: 70% meal avg I<O No BM since admit Wt gain noted Labs reviewed Meds noted including Reglan Rec continue current diet. RD following.
--- NOTE | 2018-06-05 21:00 | NUR ---
1900 REPORT RECIEVED CARE ASSUMED. ASSESSMENT DONE SEE FLOW SHEET. VSS. NO SIGNS OF ACUTE DISTRESS NOTED. WILL CONTINUE TO MONITOR. 2100 MEDS GIVEN PER APR. VSS. NO DIFFICULTY SWALLOWING NOTED.
[2018-06-05 21:27] LABS: MAGNESIUM - SERUM 2.2 mg/dL (1.8-2.4); POTASSIUM - SERUM 3.9 mmol/L (3.5-5.1)
--- NOTE | 2018-06-05 22:00 | NUR ---
FLUSH HELD PT EXPRESSES DISCOMFORT WHEN TRYING TO FLUSH.
--- NOTE | 2018-06-05 23:00 | NUR ---
REASSESSMENT DONE SEE FLOW SHEET VSS.
[2018-06-06] VITALS (12 sets, daily range): BP systolic 107–148; BP diastolic 67–81
--- NOTE | 2018-06-06 01:00 | NUR ---
PT SITTING UP IN CHAIR RESTING. WATER PROVIDED PER REQUEST. VSS WILL CONTINUE TO MONITOR.
--- NOTE | 2018-06-06 02:55 | NUR ---
REASSESSMENT DONE SEE FLOW SHEET VSS. NO SIGNS OF ACUTE DISTRESS NOTED WILL CONTINUE TO MONITOR.
--- NOTE | 2018-06-06 05:00 | NUR ---
IO COLLECTED. VSS. DIALY WEIGHT COLLECTED. NO SIGNS OF ACUTE DISTRESS NOTED WILL CONTINUE TO MONITOR.
[2018-06-06 06:31] LABS: HEMATOCRIT 31.7 % (42.0-54.0); HEMOGLOBIN 10.9 g/dL (13.5-17.5); MCHC 34.4 g/dL (31.0-37.0); MEAN PLATELET VOLUME 10.6 fL (7.4-10.4); RBC 3.41 10x6/uL (4.20-6.10); RDW 13.4 % (11.5-14.5); WBC 9.9 10x3/uL (4.8-10.8)
[2018-06-06 06:52] LABS: ALBUMIN 2.7 g/dL (3.4-5.0); ALKALINE PHOSPHATASE 54 U/L (46-116); BILIRUBIN - TOTAL 0.45 mg/dL (0.2-1.3); CALC OSMOLALITY 278 mosm/kg (275-300); CALCIUM 8.7 mg/dL (8.5-10.1); CARBON DIOXIDE 29.4 mmol/L (21.0-32.0); CHLORIDE - SERUM 102 mmol/L (98-107); CREATININE - SERUM 0.7 mg/dL (0.6-1.3); GLUCOSE 121 mg/dL (74-106); POTASSIUM - SERUM 3.4 mmol/L (3.5-5.1); PROTEIN - SERUM 6.6 g/dL (6.4-8.2); SODIUM 139 mmol/L (136-145); UREA NITROGEN 12 mg/dL (7-18); eGFR NON AFRICAN AMERICAN > 90 mL/min (90-120)
[2018-06-06 06:55] LABS: ALT (SGPT) 80 U/L (10-68)
[2018-06-06] MEDS ORDERED: PERCOCET 5-3251 TAB PO (13:03)
[2018-06-06] MEDS ORDERED: PLAVIX75 MG PO (13:09)
[2018-06-06] MEDS ORDERED: LOPRESSOR25 MG PO (13:11)
[2018-06-06] MEDS ORDERED: AMIODARONE HCL200 MG PO (13:11)
[2018-06-06] MEDS ORDERED: COLACE100 MG PO (13:12)
[2018-06-06] MEDS ORDERED: K-DUR20 MEQ PO (13:12)
--- NOTE | 2018-06-06 14:15 | NUR ---
0800-PLACED ON TELEMETRY ENCOURAGED AD [facility]BULATION-SPOT CHECK NIBP -ROOM AIR-PT VOICED ANXIOUS TO DISCHARGE HOME TODAY 1100-AMBULATING WITH OUT DIFFICULTY-SR ON MONITOR 1245-DR DEL RIO AT [facility]- 1300-PACER WIRES AND IJ REMOVED ORDERED PER POLICY AND PROCEDURE-SR ON MONITOR-NO ARRYTHMIA NOTED
--- NOTE | 2018-06-06 15:48 | NUR ---
DISCHARGE TEACHING DONE-SR ON TELEMETRY AND REMOVED-APPT. TIME GIVENT OT PT JUNE 13 AT 1000 AM AND JUNE 25 AT 1100-TO ARRIVE 1 HOUR EARLIER-FOR PORT CXR AND LAB DRAW-REVIEWED ALL NEW MEDS WITH PT AND PRESCRIPTION FOR NARCOTIC GIVEN
--- NOTE | 2018-06-09 17:10 | MORECARE ---
CASE MANAGEMENT DISCHARGE SUMMARY PATIENT: AIDE FIERRO UNIT: [id number] ADM DATE: 06/02/18 AGE: 57 : 62 SEX: M ROOM/BED: D.08 AUTHOR: BONNIE,DOC PHYSICIAN: REFERRING PHYSICIAN: JAVIER DEL RIO MD DATE OF SERVICE: 06/09/18 Discharge Plan Patient Name: AIDE FIERRO Facility[facility]:[place] : 1960 Planned Disposition: Home Anticipated Discharge Date: Discharge Date: 06/06/2018 Expected LOS: Initial Reviewer: [email or web address] Initial Review Date: 06/04/2018 Generated: 06/09/18 6:10 pm Comments DCP- Discharge Planning Updated by [email or web address]: Stephanie Rai on 06/04/18 3:[address] Patient Name: AIDE FIERRO Admission Status: Elective Accout number: [id number] Admission Date: 06-02-2018 : 1960 Admission Diagnosis: Attending: JAVIER DEL RIO Current LOS: 2 Anticipated DC Date: Planned Disposition: Home Primary Insurance: [employer] F[employer] Discharge Planning Comments: CM met with patient at bedside. Patient states he lives at home with his significant other (Bao). He plans on returning to their home upon discharge. He states he feels safe at his home. He states he will have family drive him home upon discharge. He denies any discharge needs at this time. Patient may require walk test if 02 is required upon discharge. CM will continue to follow and assist as needed with discharge planning / needs. Glass Ribbon Machine Operator Assistant: Stephanie Rai DCPIA - Discharge Planning Initial Assessment Updated by [email or web address]: Stephaine Rai on 06/04/18 4:10 pm * Is the patient Alert and Oriented? Yes * How many steps to enter\exit or inside your home? * PCP WU * Pharmacy [facility] * Preadmission Environment Home with Family * ADLs Independent * Equipment Cane * List name and contact numbers for known caregivers / representatives who currently or will assist patient after discharge: BAO OCASIO [facility] - [phone] * Verbal permission to speak to the caregivers and representatives has been obtained from the patient. Yes * Community resources currently utilized None * Additional services required to return to the preadmission environment? No * Can the patient safely return to the preadmission environment? Yes * Has this patient been hospitalized within the prior 30 days at any hospital? No Last DP export: 06/04/18 3:20 p Patient Name: AIDE FIERRO Page [id number] at 1710 All edits/amendments must be made on the electronic document DICTATION DATE: 06/09/181709 PLUMBING CONTRACTOR: MARCIN 06/09/181709 RPT#: [id number] DC DATE:06/06/18 STATUS: DIS IN [facility] [address] [place] [address] END OF REPORT
--- NOTE | 2018-06-11 10:38 | TEE ---
PATIENT:AIDE FIERRO MEDICAL RECORD: [id number] LOCATION:[place] [address] AGE OF PATIENT: 57 ADMISSION DATE: 06/02/18 SEX: M REFERRING PHYSICIAN: INTERPRETING PHYSICIAN: LISE KENT MD TRANSESOPHAGEAL ECHOCARDIOGRAM Date: 06/02/18 POWER CHARGE Y INDICATIONS: CABG PREMEDICATIONS: PATIENT'S RESPONSE PROCEDURE DOPPLER MEASUREMENTS: LVIT LA PA RA LVOT RVOT Asc. Ao AV Gradient Peak AV Mean AV Area MV Gradient Peak MV Mean MV Area INTERPRETATION: LVd: 4.6 cm LVs: 2.6 cm Doppler: 2-D: COLOR FLOW DOPPLER NORMAL SALINE STUDY: MISCELLANOUS: DIAGNOSIS: PLAN: Carpenters:Melissa Day Data Technical Lead: Shai VALLE COMMENTS: DATE OF SERVICE: 06/02/2018 PROCEDURE: Transesophageal echo evaluation of valvular structures during bypass surgery. FINDINGS: 1. Left ventricular chamber size is within normal limits. Left ventricular systolic function is normal. Overall ejection fraction estimated at 60%. 2. Left atrium, right atrium, and right ventricular chamber sizes are within TRANSESOPHAGEAL ECHOCARDIOGRAM REPORT [id number] HARSHAL FIERRO normal limits. 3. Valvular structures have normal structure and motion. 4. Doppler interrogation reveals no significant valvular insufficiency or stenosis. 5. No evidence of pericardial effusion or left ventricular thrombus. TRANSINT:[id number] Voice Confirmation ID: [id number] DOCUMENT ID: [id number] at 1038 CC: [id number] DICTATION DATE: 06/03/18 1037 CIRCULATING PROCESS INSPECTOR: 06/03/18 1109 DIS IN 06/06/18 [place] [address] [place] [id number]
== END 2018-06-06 16:10 | disposition home or self-care (01) | DRG 236 ==
LOC: D.SDCHOLD 06-02 04:55 → D.CVICU 06-02 04:55 → D.SDCHOLD 06-02 07:30 → D.CVICU 06-02 09:56 → D.SDCHOLD 06-02 11:30 → D.CVICU 06-06 16:10
PROVIDERS: ADMIT Thoracic Surgery (Cardiothoracic Vascular Surgery); ATTEND Thoracic Surgery (Cardiothoracic Vascular Surgery)
PROC: 021209W Bypass Coronary Artery, Three Arteries from Aorta with Autologous Venous Tissue, Open Approach (ICD-10-PCS; 2018-06-02)
PROC: 06BP4ZZ Excision of Right Saphenous Vein, Percutaneous Endoscopic Approach (ICD-10-PCS; 2018-06-02)
PROC: 5A1221Z Performance of Cardiac Output, Continuous (ICD-10-PCS; 2018-06-02)
PROC: B24BZZ4 Ultrasonography of Heart with Aorta, Transesophageal (ICD-10-PCS; 2018-06-02)
PROC: 02100Z9 Bypass Coronary Artery, One Artery from Left Internal Mammary, Open Approach (ICD-10-PCS; principal; 2018-06-02 07:30)
DX: I25.110 Atherosclerotic heart disease of native coronary artery with unstable angina pectoris (principal); G89.18 Other acute postprocedural pain; I10 Essential (primary) hypertension; F17.200 Nicotine dependence, unspecified, uncomplicated; K21.9 Gastro-esophageal reflux disease without esophagitis; E78.5 Hyperlipidemia, unspecified

== ENCOUNTER → 2018-06-25 10:48 | Outpatient (CLI) | payer BC ==
[2018-06-03 09:49] VITALS: BMI 29.2
[~2018-06-25 10:48] MED LIST changes: +AMIODARONE HCL200 MG PO; +COLACE100 MG PO; +K-DUR20 MEQ PO; +LOPRESSOR25 MG PO; +PERCOCET 5-3251 TAB PO; +PLAVIX75 MG PO
[2018-06-25 11:40] LABS: HEMATOCRIT 40.9 % (42.0-54.0); HEMOGLOBIN 14.1 g/dL (13.5-17.5); MCH 31.8 pg (26.0-34.0); MCHC 34.5 g/dL (31.0-37.0); MCV 92.3 fL (80.0-100.0); RBC 4.43 10x6/uL (4.20-6.10); RDW 13.3 % (11.5-14.5); WBC 8.7 10x3/uL (4.8-10.8)
[2018-06-25 12:03] LABS: ALBUMIN 3.9 g/dL (3.4-5.0); ALKALINE PHOSPHATASE 85 U/L (46-116); ALT (SGPT) 36 U/L (10-68); BILIRUBIN - TOTAL 0.29 mg/dL (0.2-1.3); CALC OSMOLALITY 279 mosm/kg (275-300); CALCIUM 8.7 mg/dL (8.5-10.1); CARBON DIOXIDE 25.4 mmol/L (21.0-32.0); CHLORIDE - SERUM 103 mmol/L (98-107); CREATININE - SERUM 0.9 mg/dL (0.6-1.3); GLUCOSE 93 mg/dL (74-106); POTASSIUM - SERUM 4.4 mmol/L (3.5-5.1); PROTEIN - SERUM 6.9 g/dL (6.4-8.2); SODIUM 139 mmol/L (136-145); UREA NITROGEN 17 mg/dL (7-18); eGFR NON AFRICAN AMERICAN > 90 mL/min (90-120)
== END | disposition home or self-care (01) ==
LOC: D.LAB 10:48
PROVIDERS: ATTEND Thoracic Surgery (Cardiothoracic Vascular Surgery)
DX: I25.10 Atherosclerotic heart disease of native coronary artery without angina pectoris (principal)

== ENCOUNTER → 2018-10-15 17:15 | Outpatient (CLI) | payer BC ==
[2018-06-03 09:49] VITALS: BMI 29.2
[2018-10-15 18:08] LABS: CHOL - HDL RATIO 7.8 ratio (2.3-4.9); LDL-HDL RATIO 4.9 ratio (1.5-3.5)
== END | disposition home or self-care (01) ==
LOC: D.LABREF 17:15
PROVIDERS: ATTEND Nurse Practitioner Adult Health
DX: I25.10 Atherosclerotic heart disease of native coronary artery without angina pectoris (principal); I10 Essential (primary) hypertension

== ENCOUNTER → 2019-01-20 17:38 | Outpatient (CLI) | payer BC ==
[2018-06-03 09:49] VITALS: BMI 29.2
[2019-01-20 18:12] LABS: CHOL - HDL RATIO 4.9 ratio (2.3-4.9); LDL-HDL RATIO 2.9 ratio (1.5-3.5)
== END | disposition home or self-care (01) ==
LOC: D.LABREF 17:38
PROVIDERS: ATTEND Internal Medicine Cardiovascular Disease
DX: I25.10 Atherosclerotic heart disease of native coronary artery without angina pectoris (principal)

== ENCOUNTER → 2019-04-20 17:15 | Outpatient (CLI) | payer BC ==
[2018-06-03 09:49] VITALS: BMI 29.2
[2019-04-20 17:55] LABS: CHOL - HDL RATIO 4.8 ratio (2.3-4.9); LDL-HDL RATIO 2.6 ratio (1.5-3.5)
== END | disposition home or self-care (01) ==
LOC: D.LABREF 17:15
PROVIDERS: ATTEND Internal Medicine Cardiovascular Disease
DX: E78.5 Hyperlipidemia, unspecified (principal)

== ENCOUNTER → 2019-07-22 20:20 | Outpatient (CLI) | payer BC ==
[2018-06-03 09:49] VITALS: BMI 29.2
[2019-07-23 10:30] LABS: CHOL - HDL RATIO 4.4 ratio (2.3-4.9); LDL-HDL RATIO 2.3 ratio (1.5-3.5)
== END | disposition home or self-care (01) ==
LOC: D.LABREF 20:20
PROVIDERS: ATTEND Internal Medicine Cardiovascular Disease
DX: E78.5 Hyperlipidemia, unspecified (principal)

== ENCOUNTER → 2020-04-12 17:15 | Outpatient (CLI) | payer BC ==
[2018-06-03 09:49] VITALS: BMI 29.2
[2020-04-12 17:40] LABS: CHOL - HDL RATIO 3.3 ratio (2.3-4.9); LDL-HDL RATIO 1.6 ratio (1.5-3.5)
== END | disposition home or self-care (01) ==
LOC: D.LABREF 17:15
PROVIDERS: ATTEND Family Medicine
DX: E78.5 Hyperlipidemia, unspecified (principal); I25.10 Atherosclerotic heart disease of native coronary artery without angina pectoris